=== PATIENT | female | born 1945 | race Asian ===

== ENCOUNTER 2019-06-02 11:32 | Day surgery (SDC) | payer OTHER ==
[2019-06-02] MEDS ORDERED: LIDOCAINE 100 MG SYRINGE (15:27)
[2019-06-02] MEDS ORDERED: PROPOFOL 40 ML (15:27)
== END 2019-06-02 17:04 | disposition home or self-care (01) ==
LOC: GIL 11:32
DX: Z86.010 Personal history of colon polyps (principal); K64.8 Other hemorrhoids; I10 Essential (primary) hypertension; Z79.82 Long term (current) use of aspirin
CPT/HCPCS: 45378; 93005